=== PATIENT | male | born 1985 | race Hispanic/Latino ===

== ENCOUNTER 2020-10-04 00:09 | Emergency (ER) | payer SELFPAY ==
[2020-10-04] MEDS ORDERED: AUGMENTIN500TAB PO (00:44)
[2020-10-04 01:30] VITALS: BP 130/72
== END 2020-10-04 01:30 | disposition home or self-care (01) | DRG 605 ==
LOC: ED 00:09
DX: S51.851A Open bite of right forearm, initial encounter (principal); Y04.1XXA Assault by human bite, initial encounter; Y92.009 Unspecified place in unspecified non-institutional (private) residence as the place of occurrence of the external cause